=== PATIENT | male | born 1960 | race Asian ===

== ENCOUNTER 2017-10-30 15:36 | Emergency (ER) | payer MEDICAID ==
[~2017-10-30] VITALS: Ht 172.7 cm; Wt 77.1 kg
[2017-10-30 15:39] VITALS: BP_SYST 139
--- NOTE | 2017-10-30 15:39 | NUR ---
Patient to ER bed 08 to gown for evaluation. Side rails up. Report received from Finn SMITH.
--- NOTE | 2017-10-30 15:42 | NUR ---
ER Dr. Calvo at bedside examining patient.
--- NOTE | 2017-10-30 15:43 | NUR ---
Pt AAOx4 ambulated into ED c/o 08/09 epigastric pain accompanying nausea since last night. Abdomen soft, rounded. No deformities noted. Denies chest pain/SOB/fever/cough/vomiting/diarrhea. at bedside. No other injuries/complaints per pt/noted. Will continue to monitor.
[2017-10-30] MEDS ORDERED: MAG HYDROX/AL HYDROX/SIMETH 30 ML, BELLADONNA ALKALOIDS/PHENOBARB 10 ML, LIDOCAINE VISC... PO ONE ×3 (15:45)
--- NOTE | 2017-10-30 15:57 | NUR ---
GI Cocktail administered. Pt tolerated well. No adverse reactions noted.
--- NOTE | 2017-10-30 16:15 | NUR ---
Pt reports pain level decreased to 3/10 on pain scale.
[2017-10-30 16:20] VITALS: BP_SYST 139
--- NOTE | 2017-10-30 16:20 | NUR ---
Patient given written and verbal discharge instructions and verbalizes understanding. ER MD discussed with patient the results and treatment provided. Patient in stable condition. ID arm band removed. Rx of Motrin & Prilosec given. Patient educated on pain management and to follow up with PMD. Pain Scale 3/10. Opportunity for questions provided and answered. Medication side effect fact sheet provided.
== END 2017-10-30 16:20 | disposition home or self-care (01) ==
LOC: SED 15:36
DX: R10.13 Epigastric pain (principal); R03.0 Elevated blood-pressure reading, without diagnosis of hypertension
CPT/HCPCS: 99282; J2001

== ENCOUNTER 2022-01-26 13:57 | Emergency (ER) | payer MEDICAID ==
[~2022-01-26] VITALS: Ht 170.2 cm; Wt 70.3 kg
[2022-01-26 14:13] VITALS: BP_SYST 143
--- NOTE | 2022-01-26 14:15 | NUR ---
Patient triaged and placed in waiting room. VSS and patient appears in no acute distress at this time. Accompanied by , awaiting available bed, and MD notified of need for MSE.
--- NOTE | 2022-01-26 14:25 | NUR ---
ER DR. HOBSON EXAMINING PT IN TRIAGE
[2022-01-26] MEDS ORDERED: DEC4 PO (15:19)
[2022-01-26] MEDS ORDERED: ZINC100T2 PO (15:19)
[2022-01-26] MEDS ORDERED: AZIT500T3 PO (15:19)
[2022-01-26] MEDS ORDERED: QUER500C PO (15:19)
[2022-01-26 15:25] VITALS: BP_SYST 112
--- NOTE | 2022-01-26 15:25 | NUR ---
Patient given written and verbal discharge instructions and verbalizes understanding. ER MD discussed with patient the results and treatment provided. Patient in stable condition. ID arm band removed. Rx of ZITHROMAX AND DECADRON given. Patient educated on pain management and to follow up with PMD. Pain Scale 0/10. Opportunity for questions provided and answered. Medication side effect fact sheet provided.
== END 2022-01-26 15:25 | disposition home or self-care (01) ==
LOC: SED 13:57
DX: U07.1 COVID-19 (principal); R05.9 Cough, unspecified; R50.9 Fever, unspecified; R09.81 Nasal congestion; Z79.899 Other long term (current) drug therapy
CPT/HCPCS: 36415; 71045; 99284